=== PATIENT | male | born 1990 | race Hispanic/Latino ===

== ENCOUNTER 2017-07-06 22:21 | Emergency (ER) | payer OTHER ==
[2017-07-06] MEDS ORDERED: HYDROcodone 7.5MG/APAP 325MG 1 EA TAB PO ONE (22:31)
[2017-07-06] MEDS ORDERED: ACETAMINOPHEN 500 MG TAB PO ONE (22:33)
[2017-07-06] MEDS ORDERED: KETOROLAC TROMETHAMINE INJ 30 MG/ML VIAL IM ONE (22:33)
[2017-07-06 22:45] VITALS: BP 142/97; TEMP 98.7; O2SAT 97
--- NOTE | 2017-07-06 22:57 | RAD ---
EXAM DESCRIPTION: Forearm,Left (accession [id number]), Hand,Left 3 Views (accession [id number]) CLINICAL HISTORY: injury from chain breaking COMPARISON: None FINDINGS: AP, lateral and oblique views of the left hand, and two views of the left forearm were submitted. There is no acute fracture or dislocation. Bone mineralization is within normal limits. There is a small linear radiopaque foreign body at the radial side of the distal fifth digit/distal interphalangeal joint level.. IMPRESSION: No acute fracture or dislocation. Small linear radiopaque foreign body at the radial side of the distal fifth digit/distal interphalangeal joint level.. Electronically signed by: Zeb Lew MD 07/06/2017 10:55 PM CDT Workstation: [id number]
--- NOTE | 2017-07-06 22:57 | RAD ---
EXAM DESCRIPTION: Forearm,Left (accession [id number]), Hand,Left 3 Views (accession [id number]) CLINICAL HISTORY: injury from chain breaking COMPARISON: None FINDINGS: AP, lateral and oblique views of the left hand, and two views of the left forearm were submitted. There is no acute fracture or dislocation. Bone mineralization is within normal limits. There is a small linear radiopaque foreign body at the radial side of the distal fifth digit/distal interphalangeal joint level.. IMPRESSION: No acute fracture or dislocation. Small linear radiopaque foreign body at the radial side of the distal fifth digit/distal interphalangeal joint level.. Electronically signed by: Zeb Lew MD 07/06/2017 10:55 PM CDT Workstation: [employer]
--- NOTE | 2017-07-06 23:06 | ED.PDOC ---
History of Present Illness - General Chief Complaint: Upper Extremity Injury Stated Complaint: lt hand/forearm injury Time Seen by Provider: 07/06/17 22:30 Source: patient Exam Limitations: no limitations - History of Present Illness Initial Comments: The patient is a 26-year-old male presenting to the emergency room secondary to left hand and forearm pain due to trauma that occurred after H cane that he was holding under tension broke and quit and slipped through his hand. He has obvious swelling and abrasion between the first and second digits that extends along the dorsum of the hand. The area is very tender to palpation. There is some swelling but no obvious deformity otherwise. He does appear to be neurovascularly intact. There is a mild abrasion to the dorsum of the hand. He is unable to tolerate testing for ligamentous stability of the joints at this time secondary to pain. No evidence of injury elsewhere. Pain extends up the arm up to just proximal to the elbow. Timing/Duration: momentarily Severity: severe Improving Factors: nothing Worsening Factors: movement Associated Symptoms: denies symptoms Allergies/Adverse Reactions: Allergies NO KNOWN ALLERGY Allergy (Verified 04/17/12 11:25) Review of Systems - Review of Systems Constitutional: States: no symptoms reported EENTM: States: no symptoms reported Respiratory: States: no symptoms reported Cardiology: States: no symptoms reported Gastrointestinal/Abdominal: States: no symptoms reported Genitourinary: States: no symptoms reported Musculoskeletal: States: see HPI Skin: States: see HPI Neurological: States: no symptoms reported Endocrine: States: no symptoms reported All other Systems: No Change from Baseline Past Medical History (General) - Patient Medical History Hx Diabetes: No Surgical History: no surgical history - Vaccination History Hx Tetanus, Diphtheria Vaccination: Yes Hx Influenza Vaccination: No Hx Pneumococcal Vaccination: No - Social History Hx Tobacco Use: Yes Hx Alcohol Use: Yes Hx Substance Use: Yes Family Medical History - Family History Mother Family History: No Known Living Status: Still Living Physical Exam - Physical Exam General Appearance: Alert Eye Exam: bilateral normal Ears, Nose, Throat: hearing grossly normal, normal pharynx Neck: full range of motion, supple Respiratory: no respiratory distress, no accessory muscle use Cardiovascular/Chest: normal peripheral pulses, no edema Peripheral Pulses: radial,right: 2+, radial,left: 2+ Rectal Exam: deferred Extremity: normal capillary refill, swelling - ee history of present illness, other - ee history of present illness Neurologic: supervisor spinning II-XII nml as tested, no motor/sensory deficits, alert, normal mood/affect, oriented x 3 Skin Exam: normal color Comments: Vital Signs - 24 hr 07/06/17 22:39 Temperature 98.7 F Pulse Rate [rt 75 arm] Respiratory 18 Rate Blood Pressure 142/97 [r arm] O2 Sat by Pulse 97 Oximetry Progress - Progress Progress: 07/06/17 23:06 the patient is a 26-year-old male presenting to the emergency room secondary to trauma to his left hand wrist and forearm after a chain that he was holding under tension broke. X-rays of the hand wrist and forearm show no evidence of fracture or dislocation. He does have obvious swelling in the area of impact. Pain is too significant at this time to do resistance testing of the ligaments. The patient will be placed in a thumb spica for the next 3-4 days. He needs to follow up with his primary care doctor for more complete testing of the underlying tendons and ligaments that were put under strain and impacted once his pain is improving. He is able to flex and extend his fingers. Advil can be used for pain. Swelling should start to improve in around 48 hours. ER warnings were given for any significant worsening. No evidence of any neurovascular compromise at this time. Departure - Departure Clinical Impression: Sprain and strain of hand Disposition: Discharge to Home or Self Care Condition: Fair Departure Forms: ED Discharge - Pt. Copy, Patient Portal Self Enrollment Instructions: DI for Hand Injury Diet: regular diet Activity: no pushing/pulling with affected limb Referrals: Mere Eaton NP [Primary Care Provider] - 1-2 Weeks Additional Instructions: the patient is a 26-year-old male presenting to the emergency room secondary to trauma to his left hand wrist and forearm after a chain that he was holding under tension broke. X-rays of the hand wrist and forearm show no evidence of fracture or dislocation. He does have obvious swelling in the area of impact. Pain is too significant at this time to do resistance testing of the ligaments. The patient will be placed in a thumb spica for the next 3-4 days. He needs to follow up with his primary care doctor for more complete testing of the underlying tendons and ligaments that were put under strain and impacted once his pain is improving. He is able to flex and extend his fingers. Advil can be used for pain. Swelling should start to improve in around 48 hours. ER warnings were given for any significant worsening. No evidence of any neurovascular compromise at this time.
== END 2017-07-07 00:13 | disposition home or self-care (01) ==
LOC: ER 22:21
DX: S63.90XA Sprain of unspecified part of unspecified wrist and hand, initial encounter (principal); S66.919A Strain of unspecified muscle, fascia and tendon at wrist and hand level, unspecified hand, initial encounter; Z87.891 Personal history of nicotine dependence; X58.XXXA Exposure to other specified factors, initial encounter; Y92.9 Unspecified place or not applicable
CPT/HCPCS: 73090; 73130; 80301; J1885